=== PATIENT | male | born 1975 | race Hispanic/Latino ===

== ENCOUNTER 2017-03-16 12:03 | Emergency (ER) | payer SELFPAY | END 2017-03-16 12:50 | disposition home or self-care (01) | LOC: EDH 12:03 | DX: S20.411A Abrasion of right back wall of thorax, initial encounter (principal); Z88.0 Allergy status to penicillin; W17.89XA Other fall from one level to another, initial encounter; Y93.89 Activity, other specified; Y92.89 Other specified places as the place of occurrence of the external cause; Y99.8 Other external cause status | CPT/HCPCS: 99281 ==